=== PATIENT | female | born 1990 | race Caucasian/White ===

== ENCOUNTER → 2023-11-08 13:12 | Outpatient (REF) | payer OTHER, SELFPAY | LOC: PNTC 13:12 | PROVIDERS: ATTENDING PHYSICIAN Obstetrics & Gynecology | DX: Z36.0 Encounter for antenatal screening for chromosomal anomalies (principal); Z36.82 Encounter for antenatal screening for nuchal translucency | CPT/HCPCS: 36415; 76801; 76813 ==

== ENCOUNTER → 2024-01-03 09:52 | Outpatient (REF) | payer OTHER, SELFPAY | LOC: PNTC 09:52 | PROVIDERS: ATTENDING PHYSICIAN Obstetrics & Gynecology | DX: O35.5XX0 Maternal care for (suspected) damage to fetus by drugs, not applicable or unspecified (principal) | CPT/HCPCS: 76811 ==

== ENCOUNTER → 2024-02-15 08:01 | Outpatient (REF) | payer OTHER, SELFPAY | LOC: PNTC 08:01 | PROVIDERS: ATTENDING PHYSICIAN Obstetrics & Gynecology | DX: O35.5XX0 Maternal care for (suspected) damage to fetus by drugs, not applicable or unspecified (principal); O10.019 Pre-existing essential hypertension complicating pregnancy, unspecified trimester | CPT/HCPCS: 76816 ==

== ENCOUNTER 2024-03-27 10:55 | Observation (INO) | payer OTHER, SELFPAY ==
[2024-03-27 11:20] LABS: % Basophils 0.6 % (0-2); % Eosinophils 1.2 % (0-6); % Lymphocytes 11.7 % (20.5-51.1); % Monocytes 5.2 % (1.7-9.3); % Neutrophils 77.3 % (42.2-75.2); Absolute Basophils 0.1 10^3/uL (0-0.2); Absolute Eosinophils 0.2 10^3/uL (0-0.7); Absolute Immature Granulocytes 0.6 10^3/uL (0-0.05); Absolute Lymphocytes 1.8 10^3/uL (1.2-3.4); Absolute Monocytes 0.8 10^3/uL (0.1-0.6); Absolute Neutrophils 11.6 10^3/uL (1.4-6.5); Hematocrit 32.4 % (37.0-47.0); Hemoglobin 10.9 g/dL (12.0-16.0); Mean Corp Hgb Conc. 33.6 g/dL (33.0-37.0); Mean Corpuscular Hgb 30.6 pg (27.0-31.0); Mean Platelet Volume 10.6 fL (7.4-10.4); Nucleated Red Blood Cells % 0 %; Platelet Count 166 10^3/uL (130-400); Red Blood Cell Count 3.56 10^6/uL (4.20-5.40); Red Cell Dist. Width 12.9 % (11.5-14.5)
[2024-03-27 11:26] LABS: Urine Albumin Negative (Neg - Trace); Urine Bilirubin Negative (Negative); Urine Character Clear (Clear); Urine Color Yellow; Urine Glucose Negative (Negative); Urine Ketone Negative (Negative); Urine Leukocyte Negative (Negative); Urine Nitrite Negative (Negative); Urine Occult Blood Negative (Negative); Urine Specific Gravity 1.005 (<1.030); Urine Urobilinogen Negative (Neg - 1+)
[2024-03-27 11:31] LABS: ALT (SGPT) 13 U/L (0-35); AST (SGOT) 23 U/L (14-36); Albumin 3.2 g/dl (3.5-5.0); Alkaline Phosphatase 127 U/L (38-126); Blood Urea Nitrogen 6 mg/dl (7-17); Calcium 8.9 mg/dl (8.4-10.2); Carbon Dioxide 24 mmol/L (22-30); Chloride 106 mmol/L (98-107); Glucose 92 mg/dl (70-99); Potassium 3.6 mmol/L (3.5-5.1); Sodium 136 mmol/L (135-145); Total Bilirubin 0.4 mg/dl (0.2-1.3); Total Protein 5.7 g/dl (6.3-8.2); eGFR > 60.00
[2024-03-27 11:42] LABS: Protein/creatinine Ratio 1.8; Urine Protein 16 mg/dl
[2024-03-27 12:35] VITALS: BP 123/93; BMI 26.5
== END 2024-03-27 11:45 | disposition home or self-care (01) ==
LOC: PNTC-IN 10:55
PROVIDERS: ADMITTING PHYSICIAN Obstetrics & Gynecology
DX: O10.013 Pre-existing essential hypertension complicating pregnancy, third trimester (principal); Z3A.32 32 weeks gestation of pregnancy
CPT/HCPCS: 59025; 76816; 80053; 81003; 82570; 84156; 85025; G0378

== ENCOUNTER → 2024-04-03 08:23 | Outpatient (REF) | payer OTHER, SELFPAY | LOC: PNTC 08:23 | PROVIDERS: ATTENDING PHYSICIAN Obstetrics & Gynecology | DX: O16.9 Unspecified maternal hypertension, unspecified trimester (principal); O35.5XX0 Maternal care for (suspected) damage to fetus by drugs, not applicable or unspecified | CPT/HCPCS: 59025; 76815 ==

== ENCOUNTER → 2024-04-10 09:42 | Outpatient (REF) | payer OTHER, SELFPAY | LOC: PNTC 09:42 | PROVIDERS: ATTENDING PHYSICIAN Obstetrics & Gynecology | DX: O16.9 Unspecified maternal hypertension, unspecified trimester (principal); O35.5XX0 Maternal care for (suspected) damage to fetus by drugs, not applicable or unspecified | CPT/HCPCS: 59025; 76815 ==

== ENCOUNTER → 2024-04-17 09:23 | Outpatient (REF) | payer OTHER, SELFPAY | LOC: PNTC 09:23 | PROVIDERS: ATTENDING PHYSICIAN Obstetrics & Gynecology | DX: O99.320 Drug use complicating pregnancy, unspecified trimester (principal); O10.119 Pre-existing hypertensive heart disease complicating pregnancy, unspecified trimester | CPT/HCPCS: 59025; 76815 ==

== ENCOUNTER 2024-05-01 10:57 | Observation (INO) | payer OTHER, SELFPAY ==
[2024-05-01 11:40] LABS: Urine Albumin Negative (Neg - Trace); Urine Bilirubin Negative (Negative); Urine Character Clear (Clear); Urine Color Yellow; Urine Glucose Negative (Negative); Urine Ketone Negative (Negative); Urine Leukocyte Negative (Negative); Urine Nitrite Negative (Negative); Urine Occult Blood Negative (Negative); Urine Urobilinogen Negative (Neg - 1+); Urine pH 6.5 (5.0-9.0)
[2024-05-01 11:44] LABS: % Basophils 0.7 % (0-2); % Eosinophils 0.9 % (0-6); % Immature Granulocytes 2.2 % (0-0.5); % Lymphocytes 16.6 % (20.5-51.1); % Monocytes 6.9 % (1.7-9.3); % Neutrophils 72.7 % (42.2-75.2); Absolute Basophils 0.1 10^3/uL (0-0.2); Absolute Eosinophils 0.1 10^3/uL (0-0.7); Absolute Immature Granulocytes 0.3 10^3/uL (0-0.05); Absolute Lymphocytes 1.9 10^3/uL (1.2-3.4); Absolute Monocytes 0.8 10^3/uL (0.1-0.6); Absolute Neutrophils 8.5 10^3/uL (1.4-6.5); Hematocrit 32.5 % (37.0-47.0); Hemoglobin 10.9 g/dL (12.0-16.0); Mean Corp Hgb Conc. 33.5 g/dL (33.0-37.0); Mean Corpuscular Hgb 29.9 pg (27.0-31.0); Mean Corpuscular Volume 89.3 fL (81.0-99.0); Mean Platelet Volume 11.3 fL (7.4-10.4); Nucleated Red Blood Cells % 0 %; Platelet Count 144 10^3/uL (130-400); Red Blood Cell Count 3.64 10^6/uL (4.20-5.40); Red Cell Dist. Width 13.2 % (11.5-14.5); White Blood Cell Count 11.7 10^3/uL (4.8-10.8)
[2024-05-01 11:53] LABS: ALT (SGPT) 10 U/L (0-35); AST (SGOT) 23 U/L (14-36); Albumin 3.1 g/dl (3.5-5.0); Alkaline Phosphatase 164 U/L (38-126); Blood Urea Nitrogen 5 mg/dl (7-17); Calcium 8.8 mg/dl (8.4-10.2); Carbon Dioxide 24 mmol/L (22-30); Chloride 109 mmol/L (98-107); Glucose 66 mg/dl (70-99); Potassium 4.2 mmol/L (3.5-5.1); Sodium 136 mmol/L (135-145); Total Bilirubin 0.4 mg/dl (0.2-1.3); Total Protein 5.5 g/dl (6.3-8.2); Uric Acid 4.3 mg/dl (2.5-6.2); eGFR > 60.00
[2024-05-01 14:22] LABS: Protein/creatinine Ratio 0.6; Urine Protein 16 mg/dl
== END 2024-05-01 12:02 | disposition home or self-care (01) ==
LOC: PNTC-IN 10:57
PROVIDERS: ADMITTING PHYSICIAN Obstetrics & Gynecology
DX: O11.3 Pre-existing hypertension with pre-eclampsia, third trimester (principal); O10.013 Pre-existing essential hypertension complicating pregnancy, third trimester; Z3A.37 37 weeks gestation of pregnancy; O99.343 Other mental disorders complicating pregnancy, third trimester; F41.9 Anxiety disorder, unspecified
CPT/HCPCS: 59025; 76815; 80053; 81003; 82570; 84156; 84550; 85025; G0378

== ENCOUNTER 2024-05-02 20:19 | Inpatient (IN) | payer OTHER, SELFPAY ==
[2024-05-02 20:38] VITALS: BMI 28.7
[2024-05-02] MEDS: CYTOTEC 50 MICROGRAM VAG (21:56)
[2024-05-02 22:53] VITALS: BP 139/96
[2024-05-03] MEDS: LR 1000 IV ×2 (01:40→22:53)
[2024-05-03] MEDS: CYTOTEC 50 MICROGRAM PO ×2 (02:18→06:16)
[2024-05-03] MEDS: CYTOTEC PO (11:03)
[2024-05-03] MEDS: MORPHINE SULFATE 2 MG IV (22:53)
[2024-05-03] MEDS: PHENERGAN 51 MG IV (22:54)
[2024-05-04] MEDS: CYTOTEC PO (00:03)
[2024-05-04] MEDS: PITOCIN 30 UNITS/NSS 500 ML IV (00:58)
[2024-05-04] MEDS: LR 1000 IV ×2 (05:33→21:46)
[2024-05-04] MEDS: NON-FORMULARY ITEM 1 MG PO (08:08)
[2024-05-04] MEDS: SUBLIMAZE 100 MCG EPIDURAL (13:05)
[2024-05-04] MEDS: FENTANYL/BUPIVACAINE 100 EPIDURAL ×2 (13:06→20:47)
[2024-05-05] MEDS: FENTANYL/BUPIVACAINE 100 EPIDURAL (04:15)
[2024-05-05] MEDS: LR 1000 IV (05:17)
[2024-05-05] MEDS: PITOCIN 30 UNITS/NSS 500 ML IV ×2 (07:21→11:33)
[2024-05-05] MEDS: NON-FORMULARY ITEM 1 MG PO (07:28)
[2024-05-05] MEDS: PRENATAL PLUS PO (15:14)
[2024-05-05] MEDS: TYLENOL 650 MG PO ×2 (15:37→21:09)
[2024-05-05] MEDS: MOTRIN 600 MG PO ×2 (15:37→21:47)
[2024-05-06] MEDS: MOTRIN 600 MG PO ×3 (03:51→20:13)
[2024-05-06] MEDS: TYLENOL 650 MG PO ×2 (03:52→09:18)
[2024-05-06 04:40] LABS: Hematocrit 29.7 % (37.0-47.0); Hemoglobin 10.1 g/dL (12.0-16.0)
[2024-05-06] MEDS: PRENATAL PLUS 1 TABLET PO (09:11)
[2024-05-06] MEDS: NON-FORMULARY ITEM 1 MG PO (09:34)
[2024-05-07] MEDS: MOTRIN 600 MG PO ×3 (03:07→16:51)
[2024-05-07] MEDS: NON-FORMULARY ITEM 1 MG PO (07:17)
[2024-05-07] MEDS: PRENATAL PLUS 1 TABLET PO (07:17)
[2024-05-07] MEDS: TYLENOL 650 MG PO ×2 (10:24→16:51)
[2024-05-09 13:50] LABS: Syphilis/T. pallidum Ab Reflex Negative (Negative)
== END 2024-05-07 19:24 | disposition home or self-care (01) | DRG 807 ==
LOC: LDRP 20:19
PROVIDERS: Obstetrics & Gynecology; ADMITTING PHYSICIAN Obstetrics & Gynecology
PROC: 3E0P7VZ Introduction of Hormone into Female Reproductive, Via Natural or Artificial Opening (ICD-10-PCS; 2024-05-02)
PROC: 0U7C7ZZ Dilation of Cervix, Via Natural or Artificial Opening (ICD-10-PCS; 2024-05-03)
PROC: 3E033VJ Introduction of Other Hormone into Peripheral Vein, Percutaneous Approach (ICD-10-PCS; 2024-05-04)
PROC: 10H07YZ Insertion of Other Device into Products of Conception, Via Natural or Artificial Opening (ICD-10-PCS; 2024-05-04)
PROC: 10907ZC Drainage of Amniotic Fluid, Therapeutic from Products of Conception, Via Natural or Artificial Opening (ICD-10-PCS; 2024-05-04)
PROC: 10E0XZZ Delivery of Products of Conception, External Approach (ICD-10-PCS; 2024-05-05)
PROC: 0UQMXZZ Repair Vulva, External Approach (ICD-10-PCS; 2024-05-05)
DX: O11.4 Pre-existing hypertension with pre-eclampsia, complicating childbirth (principal); Z37.0 Single live birth; O70.0 First degree perineal laceration during delivery; Z3A.37 37 weeks gestation of pregnancy
CPT/HCPCS: 88307; 85014; 85018; 86780; 86850; 86900; 86901

== ENCOUNTER → 2024-06-02 09:50 | Outpatient (REF) | payer OTHER, SELFPAY | LOC: PNTC 09:50 | PROVIDERS: ATTENDING PHYSICIAN Obstetrics & Gynecology | DX: O10.119 Pre-existing hypertensive heart disease complicating pregnancy, unspecified trimester (principal); O99.320 Drug use complicating pregnancy, unspecified trimester | CPT/HCPCS: 59025; 76816 ==